=== PATIENT | male | born 1970 | race Hispanic/Latino ===

== ENCOUNTER 2019-04-08 08:09 | Inpatient (IN) | payer BC, OTHER ==
[~2019-04-08] VITALS: Ht 182.9 cm; Wt 111.3 kg
[2019-04-08 09:01] LABS: BASOPHILS # (AUTO) 0.1 (0.0-0.1); BASOPHILS % 0.4 % (0.0-1.0); EOSINOPHILS % 0.2 % (0.0-6.0); HEMATOCRIT 44.7 % (38.2-49.6); HEMOGLOBIN 16.1 g/dL (14.0-18.0); LYMPHOCYTES # (AUTO) 0.6 (1.0-3.2); LYMPHOCYTES % 4.1 % (18.0-39.1); MEAN CORPUSCULAR HEMOGLOBIN 31.5 pg (28-32); MEAN CORPUSCULAR VOLUME 87.5 fL (81-99); MONOCYTES # (AUTO) 0.4 (0.2-0.8); MONOCYTES % 2.7 % (4.4-11.3); NEUTROPHILS # (AUTO) 14.1 (2.1-6.9); NEUTROPHILS % 91.1 % (38.7-80.0); PLATELET COUNT 129 x10e3/uL (140-360); RED BLOOD COUNT 5.11 x10e6/uL (4.3-5.7); RED CELL DISTRIBUTION WIDTH 13.1 % (11.7-14.4)
[2019-04-08 09:09] LABS: BILIRUBIN,URINE SMALL (NEGATIVE); CLARITY,URINE CLOUDY (CLEAR); COLOR,URINE ORANGE (YELLOW); LEUKOCYTE ESTERASE ,URINE NEGATIVE (NEGATIVE); NITRITE,URINE NEGATIVE (NEGATIVE); PROTEIN,URINE DIPSTICK 2+ (NEGATIVE); URINE UROBILINOGEN 1 mg/dL (0.2 - 1)
[2019-04-08 09:13] LABS: KETONES,URINE 2+ (NEGATIVE)
[2019-04-08] MEDS ORDERED: ONDANSETRON HCL INJ 2MG/ML 2ML 2 MG/ML VIAL IV STA (09:13)
[2019-04-08] MEDS ORDERED: PANTOPRAZOLE 40 MG 10ML VIAL IV STA (09:13)
[2019-04-08 09:15] LABS: AMORPHOUS SEDIMENT,URINE MODERATE (FEW); BACTERIA,URINE MANY /HPF; EPITHELIAL CELLS,URINE MANY /LPF; RBC,URINE >50 /HPF (0-5); WBC,URINE (MAN) >50 /HPF (0-5)
[2019-04-08] MEDS ORDERED: DICYCLOMINE HCL 20 MG/2 ML VIAL IM ONE (09:15)
[2019-04-08] MEDS ORDERED: SODIUM CHLORIDE 0.9% 1000ML 1,000 ML IV SCH (09:15)
[2019-04-08 09:23] LABS: ALANINE AMINOTRANSFERASE 96 IU/L (0-55); ALBUMIN 3.6 g/dL (3.5-5.0); ALBUMIN/GLOBULIN RATIO 0.9 (0.8-2.0); ALKALINE PHOSPHATASE 82 IU/L (40-150); ANION GAP 16.2 mmol/L (8-16); BLOOD UREA NITROGEN 16 mg/dL (7-26); BUN/CREATININE RATIO 13 (6-25); CALCIUM 9.6 mg/dL (8.4-10.2); CARBON DIOXIDE 24 mmol/L (22-29); CHLORIDE 98 mmol/L (98-107); CREATININE, SERUM 1.24 mg/dL (0.72-1.25); EST GLOMERULAR FILTRATION RATE > 60 ML/MIN (60-); GLUCOSE 136 mg/dL (74-118); POTASSIUM 3.2 mmol/L (3.5-5.1); SODIUM 135 mmol/L (136-145)
--- NOTE | 2019-04-08 10:02 | Diagnostic Imaging Report ---
History: Back pain, headache for a few days Comparison studies: None Technique: Axial images were obtained from the skull base to the vertex. Coronal and sagittal reconstructions obtained from the axial data. Dose modulation, iterative reconstruction, and/or weight based adjustment of the mA/kV was utilized to reduce the radiation dose to as low as reasonably achievable. Findings: Scalp/skull: No abnormalities. No fractures, blastic or lytic lesions. Extra-axial spaces: No masses. No fluid collections. Brain sulci: Appropriate for age. Ventricles: Normal in size and configuration. No hydrocephalus. Parenchyma: No abnormal densities. No masses, hemorrhage, acute or chronic cortical vascular insults. Sellar/suprasellar region: Expanded expanded CSF filled sella turcica with transsphenoidal resection changes and dehiscent floor. Craniocervical junction: Patent foramen magnum. No Chiari one malformation. IMPRESSION: No acute abnormalities . Transsphenoidal resection changes with expanded CSF filled sella turcica. Signed by: DR Matheus Rodríguez M.D. on 04/08/2019 9:58 AM
[2019-04-08] MEDS ORDERED: CEFTRIAXONE SOD 1 GM/NS 50 ML 50 ML IV SCH (10:15)
--- NOTE | 2019-04-08 10:20 | Diagnostic Imaging Report ---
EXAM: CT of the abdomen and pelvis WITH contrast HISTORY: Abdominal pain, vomiting, reported history of brain tumor COMPARISON: None available. TECHNIQUE: The abdomen and pelvis were scanned utilizing a multidetector helical scanner. Coronal and sagittal reformats are provided. PROTOCOL: Routine IV CONTRAST: 100 cc of Isovue-370. ORAL CONTRAST: None, which limits sensitivity and specificity of the exam. RADIATION DOSE: Total DLP: 808.93 mGy*cm Estimated effective dose: (DLP x 0.015 x size factor) Dose modulation, iterative reconstruction, and/or weight based adjustment of the mA/kV was utilized to reduce the radiation dose to as low as reasonably achievable. COMPLICATIONS: None FINDINGS: LOWER THORAX: Subcentimeter left lower lobe calcified granuloma. No evidence of pneumonia or pulmonary edema. HEPATOBILIARY: Diffusely decreased attenuation of the liver. No mass. No biliary dilation. No calcified gallstone. The gallbladder is distended, but not dilated. SPLEEN: No splenomegaly. PANCREAS: No focal masses or ductal dilatation. ADRENALS: No discrete adrenal nodule. KIDNEYS/URETERS: No hydronephrosis, stones, or definite solid mass lesions. PELVIC ORGANS/BLADDER: The urinary bladder is partially decompressed, but even allowing for this the wall appears diffusely thickened with prominent surrounding fat stranding. GI TRACT: Severe diffuse colonic diverticulosis, most notably the sigmoid colon. No dilation or wall thickening identified. The appendix is normal. PERITONEUM / RETROPERITONEUM: No free air or fluid. LYMPH NODES: No pathologically enlarged lymph node. VESSELS: Unremarkable. BONES and JOINTS: No aggressive osseous lesion or acute fracture. SOFT TISSUES: Mild superficial focal fat stranding at the right ventral abdominal wall, correlate for recent infection,. IMPRESSION: 1. Findings compatible with cystitis, correlate with urinalysis. 2. Severe colonic diverticulosis, without evidence of acute diverticulitis. 3. Hepatic steatosis. Signed by: Joe Peñaloza.Ori., M.M.M. on 04/08/2019 10:16 AM
[2019-04-08] MEDS: SODIUM CHLORIDE 0.9% 1000ML 1,000 ML IV SCH ×2 (10:43→20:32)
--- OUTSIDE RECORDS SUMMARY | 2019-04-08 10:53 | XMS REPORT ---
Author Author [facility] Address Unknown Phone Unavailable Care Team Providers Care Aquatics Coordinator Name Role Phone Adan CISNEROS Unavailable Unavailable Problems This patient has no known problems. Allergies, Adverse Reactions, Alerts This patient has no known allergies or adverse reactions. Medications This patient has no known medications. Results Test Description Test Time Test Comments Text Results Atomic Results Result Comments CT ABDOMEN/PELVIS W 2019-04-08 10:10:00 [place] [address] Patient Name: GILSON QUEZADA MR #: [id number] : 1970 Age/Sex: 48/M Req #: [id number] [facility] Physician: Ordered by: ABELARDO CISNEROS MD Report #: [id number] Location: ER Room/Bed: Procedure: [id number] CT/CT ABDOMEN/PELVIS W Exam Date: 04/08/19 Exam Time: 919 REPORT STATUS: Signed EXAM: CT of the abdomen and pelvis WITH contrast HISTORY: Abdominal pain, vomiting, reported history of brain tumor COMPARISON: None available. TECHNIQUE: The abdomen and pelvis were scanned utilizing a multidetector helical scanner. Coronal and sagittal reformats are provided. PROTOCOL: Routine IV CONTRAST: 100 cc of Isovue-370. ORAL CONTRAST: None, which limits sensitivity and specificity of the exam. RADIATION DOSE: Total DLP: 808.93 mGy*cm Estimated effective dose: (DLP x 0.015 x size factor) Dose modulation, iterative reconstruction, and/or weight based adjustment of the mA/kV was utilized to reduce the radiation dose to as low as reasonably achievable. COMPLICATIONS: None FINDINGS: LOWER THORAX: Subcentimeter left lower lobe calcified granuloma. No evidence of pneumonia or pulmonary edema. HEPATOBILIARY: Diffusely decreased attenuation of the liver. No mass. No biliary dilation. No calcified gallstone. The gallbladder is distended, but not dilated. SPLEEN: No splenomegaly. PANCREAS: No focal masses or ductal dilatation. ADRENALS: No discrete adrenal nodule. KIDNEYS/URETERS: No hydronephrosis, stones, or definite solid mass lesions. PELVIC ORGANS/BLADDER: The urinary bladder is partially decompressed, but even allowing for this the wall appears diffusely thickened with prominent surrounding fat stranding. GI TRACT: Severe diffuse colonic diverticulosis, most notably the sigmoid colon. No dilation or wall thickening identified. The appendix is normal. PERITONEUM / RETROPERITONEUM: No free air or fluid. LYMPH NODES: No pathologically enlarged lymph node. VESSELS: Unremarkable. BONES and JOINTS: No aggressive osseous lesion or acute fracture. SOFT TISSUES: Mild superficial focal fat stranding at the right ventral abdominal wall, correlate for recent infection,. IMPRESSION: 1. Findings compatible with cyst itis, correlate with urinalysis. 2. Severe colonic diverticulosis, without evidence of acute diverticulitis. 3. Hepatic steatosis. Signed by: Dr. Champ Aldana D.O., M.M.M. on 04/08/2019 10:16 AM Dictated By: CHAMP ALDANA DO 1016 Transcribed By: MARK on 04/08/19 1016 COPY TO: ABELARDO CISNEROS MD CT BRAIN WO 2019-04-08 09:53:00 [place] [address] Patient Name: GILSON QUEZADA MR #: [id number] : 1970 Age/Sex: 48/M Req #: [id number] Adm Physician: Ordered by: ABELARDO CISNEROS MD Report #: [id number] Location: Room/Bed: Procedure: [id number] CT/CT BRAIN WO Exam Date: 04/08/19 Exam Time: 919 REPORT STATUS: Signed History: Back pain, headache for a few days Comparison stud ies: None Technique: Axial images were obtained from the skull base to the vertex. Coronal and sagittal reconstructions obtained from the axial data. Dose modulation, iterative reconstruction, and/or weight based adjustment of the mA/kV was utilized to reduce the radiation dose to as low as reasonably achievable. Findings: Scalp/skull: No abnormalities. No fractures, blastic or lytic lesions. Extra-axial spaces: No masses. No fluid collections. Brain sulci: Appropriate for age. Ventricles: Normal in size and configuration. No hydrocephalus. Parenchyma: No abnormal densities. No masses, hemorrhage, acute or chronic cortical vascular insults. Sellar/suprasellar region: Expanded expanded CSF filled sella turcica with transsphenoidal resection changes and dehiscent floor. Craniocervical junction: Patent foramen magnum. No Chiari one malformation. IMPRESSION: No acute abnormalities . Transsphenoidal resection changes with expanded CSF filled sella turcica. Signed by: DR Matheus Rodríguez M.D. on 04/08/2019 9:58 AM Dictated By: MATHEUS PATINO MD 7 Transcribed By: MARK on 04/08/19957 COPY TO: ABELARDO CISNEROS MD
--- NOTE | 2019-04-08 11:04 | NUR ---
report received from ER, patient to arrive via WC alert and oriented.
[2019-04-08 11:26] VITALS: BP 122/70
--- NOTE | 2019-04-08 11:26 | NUR ---
patient arrived to unit via WC, alert and oriented with at bedside. patient is able to ambulate with no difficulties. bed in lowest position and call mullen within reach
[2019-04-08 11:35] VITALS: BP 122/70
[2019-04-08 11:49] VITALS: BP 122/70
--- NOTE | 2019-04-08 12:00 | NUR ---
placed a call out to MD for orders at this time, message was left, awaiting return call.
[2019-04-08 12:35] LABS: BAND NEUTROPHILS % (MANUAL) 8 %; EOSINOPHILS % (MANUAL) 1 % (0-7); LYMPHOCYTES % (MANUAL) 7 % (19-48); MONOCYTES % (MANUAL) 7 % (3.4-9.0); NEUTROPHILS % (MANUAL) 77 % (40-74); PLATELET ESTIMATE ADEQUATE; PLATELET MORPHOLOGY COMMENT NORMAL; RBC MORPHOLOGY COMMENT NORMAL
[2019-04-08] MEDS ORDERED: SYNTHROID125 MCG PO (13:15)
[2019-04-08] MEDS ORDERED: DESMOPRESSIN A0.1 MG PO (13:15)
[2019-04-08] MEDS ORDERED: DEXAMETHASONE4 MG PO (13:15)
[2019-04-08] MEDS ORDERED: SODIUM CHLORIDE 0.9% 50ML 50 ML ONE (14:53)
[2019-04-08] MEDS ORDERED: IOPAMIDOL 370 MG/ML 200 ML INFUS..BTL INJ ONE (14:53)
--- NOTE | 2019-04-08 15:00 | NUR ---
placed another call out to MD, awaiting return call.
[2019-04-08 16:00] VITALS: BP 115/73
[2019-04-08] MEDS ORDERED: ACETAMINOPHEN 325 MG TAB PO PRN (17:15)
[2019-04-08] MEDS ORDERED: POTASSIUM CHLORIDE 20 MEQ TAB CR PO ONE (17:40)
--- NOTE | 2019-04-08 18:45 | NUR ---
rounded with desizing machine operator head end nurse, patient aware of change and in no distress. call mullen within reach, at bedside and bed in lowest position
[2019-04-08 21:00] VITALS: BP 100/53
[2019-04-08 21:13] VITALS: BP 100/53
[2019-04-09] VITALS (8 sets, daily range): BP systolic 107–133; BP diastolic 61–82
[2019-04-09] MEDS: SODIUM CHLORIDE 0.9% 1000ML 1,000 ML IV SCH ×3 (04:47→22:12)
[2019-04-09 05:35] LABS: BASOPHILS % 0.4 % (0.0-1.0); EOSINOPHILS # (AUTO) 0.1 (0.0-0.4); EOSINOPHILS % 0.7 % (0.0-6.0); HEMATOCRIT 39.1 % (38.2-49.6); HEMOGLOBIN 13.7 g/dL (14.0-18.0); LYMPHOCYTES # (AUTO) 1.4 (1.0-3.2); LYMPHOCYTES % 12.6 % (18.0-39.1); MEAN CORPUSCULAR HEMOGLOBIN 31.4 pg (28-32); MEAN CORPUSCULAR VOLUME 89.5 fL (81-99); MONOCYTES # (AUTO) 0.6 (0.2-0.8); MONOCYTES % 5.6 % (4.4-11.3); NEUTROPHILS # (AUTO) 8.9 (2.1-6.9); NEUTROPHILS % 79.2 % (38.7-80.0); PLATELET COUNT 125 x10e3/uL (140-360); RED BLOOD COUNT 4.37 x10e6/uL (4.3-5.7); RED CELL DISTRIBUTION WIDTH 13.5 % (11.7-14.4)
[2019-04-09 05:56] LABS: ALANINE AMINOTRANSFERASE 58 IU/L (0-55); ALBUMIN 2.9 g/dL (3.5-5.0); ALBUMIN/GLOBULIN RATIO 0.7 (0.8-2.0); ALKALINE PHOSPHATASE 89 IU/L (40-150); ANION GAP 11.3 mmol/L (8-16); BLOOD UREA NITROGEN 12 mg/dL (7-26); BUN/CREATININE RATIO 11 (6-25); CALCIUM 8.8 mg/dL (8.4-10.2); CARBON DIOXIDE 25 mmol/L (22-29); CHLORIDE 102 mmol/L (98-107); CREATININE, SERUM 1.08 mg/dL (0.72-1.25); EST GLOMERULAR FILTRATION RATE > 60 ML/MIN (60-); GLUCOSE 103 mg/dL (74-118); MAGNESIUM 2.2 MG/DL (1.3-2.1); PHOSPHORUS 1.6 MG/DL (2.3-4.7); POTASSIUM 3.3 mmol/L (3.5-5.1); SODIUM 135 mmol/L (136-145)
--- NOTE | 2019-04-09 06:45 | NUR ---
rounded with concession cashier nurse, patient aware of change and in no distress with at bedside. call mullen within reach and bed in lowest position.
[2019-04-09] MEDS: CEFTRIAXONE SOD 1 GM/NS 50 ML 50 ML IV SCH (11:03)
--- NOTE | 2019-04-09 14:05 | NUR ---
Visit made by the Spiritual Care Department Pastoral Visitor, Vernell Ansari. PV provided pastoral presence, prayer, hospitality, and supportive listening. Pastoral Visitor informed pt/family of the scope of [employer] and availability. ROLANDO DOZIER [employer] Spiritual Care Department O: [phone] Pager: [phone] ([phone] number calling from)
--- NOTE | 2019-04-09 21:27 | NUR ---
LATE entry: DOS 2pm H&P cc: N/V/D HPI: 48yoM, PCP at [facility], developed intractable N/V/D for 3 days; Some abdominal pain and subjective fevers. PMH: benign pituitary tumor s/p resection PSHx; pituitary tumor Allergies; see emr Fh/SH; ; no cigs; occ etoh meeds; see MAR ROS: no cp/sob/dizziness/COMBS/vision changes/skin rash/back pain v/s revd PE tired appearing anicteric ns1s2 mod bs soft ND; minimal tenderness in epigastrium skin dry no e/t a&ox3; hogue labs/meds; revd A/P: 48yoM Cystitis-acute DIverticulosis Hepatic steatosis Hypokalemia Thrombocytopenia Hyponatremia UTI Obesity BMI 33.3 Hypothyroidism PLAN IVF IV abx GI consult f/u cultures; hba1c/lipids SCD Natalio Hendrix MD, PhD.
[2019-04-10 00:05] VITALS: BP 111/64
[2019-04-10 05:27] VITALS: BP 122/74
[2019-04-10 05:29] LABS: BASOPHILS % 0.6 % (0.0-1.0); EOSINOPHILS # (AUTO) 0.2 (0.0-0.4); EOSINOPHILS % 3.1 % (0.0-6.0); HEMATOCRIT 39.1 % (38.2-49.6); HEMOGLOBIN 13.9 g/dL (14.0-18.0); LYMPHOCYTES # (AUTO) 1.8 (1.0-3.2); LYMPHOCYTES % 25.9 % (18.0-39.1); MEAN CORPUSCULAR HEMOGLOBIN 31.5 pg (28-32); MEAN CORPUSCULAR HGB CONC 35.5 g/dL (31-35); MEAN CORPUSCULAR VOLUME 88.7 fL (81-99); MONOCYTES # (AUTO) 0.7 (0.2-0.8); MONOCYTES % 10.3 % (4.4-11.3); PLATELET COUNT 149 x10e3/uL (140-360); RED BLOOD COUNT 4.41 x10e6/uL (4.3-5.7)
[2019-04-10 05:49] LABS: ANION GAP 12.4 mmol/L (8-16); BLOOD UREA NITROGEN 13 mg/dL (7-26); BUN/CREATININE RATIO 13 (6-25); CALCIUM 8.9 mg/dL (8.4-10.2); CARBON DIOXIDE 22 mmol/L (22-29); CHLORIDE 105 mmol/L (98-107); CREATININE, SERUM 0.99 mg/dL (0.72-1.25); EST GLOMERULAR FILTRATION RATE > 60 ML/MIN (60-); GLUCOSE 88 mg/dL (74-118); POTASSIUM 3.4 mmol/L (3.5-5.1); SODIUM 136 mmol/L (136-145)
--- NOTE | 2019-04-10 06:24 | NUR ---
D/C summary Principal Dx: Cystitis-acute Enterococcus UTI DIverticulosis Hepatic steatosis Hypokalemia Thrombocytopenia Hyponatremia Secondary Dx: Obesity BMI 33.3 Hypothyroidism PLAN IVF IV abx GI consult f/u cultures; hba1c/lipids SCD 04/10 Hypokalemia- replace; GNR UTI- f/u; leukcoytosis resolved; d/c home f/u pcp 1 week Stable d/c>35mins Natalio Hendrix MD, PhD.
[2019-04-10] MEDS ORDERED: LEVOTHYROXINE SODIUM 125 MCG TAB PO SCH (06:30)
[2019-04-10] MEDS: SODIUM CHLORIDE 0.9% 1000ML 1,000 ML IV SCH ×2 (06:40→14:47)
[2019-04-10] MEDS ORDERED: POTASSIUM CHLORIDE 20 MEQ TAB CR PO ONE (06:45)
[2019-04-10 08:00] VITALS: BP_SYST 124; BP_SYST 160; BP_DIAS 120; BP_DIAS 81
[2019-04-10] MEDS: CEFTRIAXONE SOD 1 GM/NS 50 ML 50 ML IV SCH (08:08)
[2019-04-10 08:09] VITALS: BP 124/81
[2019-04-10 12:00] VITALS: BP 135/95
[2019-04-10 16:00] VITALS: BP 123/82
[2019-04-10] MEDS ORDERED: CIPROFLOXACIN 500 MG TAB PO SCH (17:00)
[2019-04-10] MEDS ORDERED: CIPROFLOXACIN500 MG PO (18:12)
--- NOTE | 2019-04-10 18:40 | NUR ---
Discharge documents given and signed by patient. Notified patient rx for antibiotic will be faxed by to [facility] located on [address] as requested.
--- NOTE | 2019-04-10 18:50 | NUR ---
ADDENDUM Pt had Enterobacter aerogenes (not enterococcus) D/C summary Principal Dx: Cystitis-acute Enterobacter aerogenes UTI DIverticulosis Hepatic steatosis Hypokalemia Thrombocytopenia Hyponatremia Secondary Dx: Obesity BMI 33.3 Hypothyroidism PLAN IVF IV abx GI consult f/u cultures; hba1c/lipids SCD 9/ Hypokalemia- replace; GNR UTI- f/u; leukcoytosis resolved; d/c home f/u pcp 1 week Stable d/c>35mins Natalio Hendrix MD, PhD.
--- NOTE | 2019-04-10 19:00 | NUR ---
received report from day nurse. patient is resting comfortably in bed. bed is in lowest position and call mullen is within reach. will continue to monitor patient. patient is waiting for transportation to take him home.
--- NOTE | 2019-04-10 19:05 | NUR ---
Report given to Sami RN of patient's status. No s/s of acute distress noted. Discharge assessment to be completed by oncoming nurse. Patient states "I am waiting for ride. My will be here at 8pm"
== END 2019-04-10 20:35 | disposition home or self-care (01) | DRG 872 ==
LOC: ER 08:09 → ERHOLD 10:50 → MED/SURG2 11:32 → OBSVTOIN 04-09 07:05 → MED/SURG 04-09 17:55 → MED/SURG2 04-09 17:56
PROVIDERS: ADMIT Internal Medicine; ATTEND Internal Medicine
DX: A41.89 Other specified sepsis (principal); N30.00 Acute cystitis without hematuria; E87.1 Hypo-osmolality and hyponatremia; K57.90 Diverticulosis of intestine, part unspecified, without perforation or abscess without bleeding; K76.0 Fatty (change of) liver, not elsewhere classified; E87.6 Hypokalemia; D69.6 Thrombocytopenia, unspecified; E66.9 Obesity, unspecified; Z68.33 Body mass index [BMI] 33.0-33.9, adult; E03.9 Hypothyroidism, unspecified; B96.89 Other specified bacterial agents as the cause of diseases classified elsewhere
CPT/HCPCS: 36415; 70450; 74177; 80048; 80053; 81001; 83690; 83735; 84100; 85025; 87081; 87086; 87186; 87205; 99284; G0378; J0500; J0696; J2405; J7030; Q9967

== ENCOUNTER 2019-11-11 11:42 | Emergency (ER) | payer BC ==
[~2019-11-11] VITALS: Ht 182.9 cm; Wt 111.1 kg
[~2019-11-11 11:42] MED LIST: CIPROFLOXACIN500 MG PO; DESMOPRESSIN A0.1 MG PO; DEXAMETHASONE4 MG PO; SYNTHROID125 MCG PO
[2019-11-11] MEDS ORDERED: ACETAMINOPHEN 325 MG TAB ONE (12:10)
[2019-11-11] MEDS ORDERED: SODIUM CHLORIDE 0.9% 1000ML 1,000 ML ONE (12:10)
[2019-11-11] MEDS ORDERED: CEFTRIAXONE SOD 1 GM VIAL ONE ×2 (12:10)
[2019-11-11] MEDS ORDERED: CEFTRIAXONE SOD 1 GM VIAL IV ONE (12:15)
[2019-11-11] MEDS ORDERED: ACETAMINOPHEN 325 MG TAB PO ONE (12:15)
[2019-11-11 12:20] LABS: CLARITY,URINE CLEAR (CLEAR); COLOR,URINE YELLOW (YELLOW)
[2019-11-11 12:21] LABS: BILIRUBIN,URINE SMALL (NEGATIVE); KETONES,URINE TRACE (NEGATIVE); LEUKOCYTE ESTERASE ,URINE NEGATIVE (NEGATIVE); NITRITE,URINE NEGATIVE (NEGATIVE); PROTEIN,URINE DIPSTICK 2+ (NEGATIVE); URINE UROBILINOGEN 0.2 mg/dL (0.2 - 1)
[2019-11-11 12:24] LABS: EPITHELIAL CELLS,URINE RARE /LPF; MUCUS,URINE RARE (RARE); RBC,URINE 0-5 /HPF (0-5); WBC,URINE (MAN) 0-5 /HPF (0-5)
[2019-11-11 12:26] LABS: PHENCYCLIDINE SCREEN,URINE NEGATIVE (NEGATIVE)
[2019-11-11 12:27] LABS: BASOPHILS % 0.6 % (0.0-1.0); EOSINOPHILS % 0.4 % (0.0-6.0); HEMATOCRIT 49.1 % (38.2-49.6); HEMOGLOBIN 16.7 g/dL (14.0-18.0); LYMPHOCYTES # (AUTO) 1.6 (1.0-3.2); LYMPHOCYTES % 29.9 % (18.0-39.1); MEAN CORPUSCULAR HEMOGLOBIN 31.7 pg (28-32); MEAN CORPUSCULAR VOLUME 93.3 fL (81-99); MONOCYTES # (AUTO) 0.2 (0.2-0.8); MONOCYTES % 4.6 % (4.4-11.3); NEUTROPHILS # (AUTO) 3.3 (2.1-6.9); PLATELET COUNT 170 x10e3/uL (140-360); RED BLOOD COUNT 5.26 x10e6/uL (4.3-5.7); RED CELL DISTRIBUTION WIDTH 13.2 % (11.7-14.4)
[2019-11-11 12:27] LABS: AMPHETAMINES SCREEN,URINE POSITIVE (NEGATIVE)
[2019-11-11 12:28] LABS: BENZODIAZEPINES SCREEN,URINE NEGATIVE (NEGATIVE)
[2019-11-11] MEDS ORDERED: CEFTRIAXONE SOD 1 GM/NS 50 ML 50 ML IV SCH (12:45)
[2019-11-11 12:46] LABS: ALBUMIN 3.7 g/dL (3.5-5.0); ALBUMIN/GLOBULIN RATIO 0.9 (0.8-2.0); CALCIUM 8.5 mg/dL (8.4-10.2); CREATININE, SERUM 1.33 mg/dL (0.72-1.25)
--- NOTE | 2019-11-11 14:32 | Diagnostic Imaging Report ---
Chest, 1 view, 11/11/2019. History: UTI, fever. Comparison: None available. Findings: The cardiomediastinal silhouette and pulmonary vasculature are within normal limits for a portable exam. Patchy opacity is present at the left lung base. Right lung is clear. There are no acute osseous or soft tissue abnormalities. Impression: Left basilar opacity may represent atelectasis but pneumonia cannot be excluded. Signed by: Vishnu Whitney on 11/11/2019 2:28 PM
== END 2019-11-11 15:00 | disposition home or self-care (01) ==
LOC: ER 11:42
DX: R30.0 Dysuria (principal); J18.9 Pneumonia, unspecified organism; E07.9 Disorder of thyroid, unspecified
CPT/HCPCS: 36415; 71045; 80053; 80307; 81001; 85025; 87040; 87086; 99284; J0696; J7030